=== PATIENT | female | born 1980 | race Asian ===

== ENCOUNTER 2017-09-15 17:23 | Emergency (ER) | payer BC ==
[~2017-09-15] VITALS: Ht 157.5 cm; Wt 55.8 kg
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
--- NOTE | 2017-09-15 17:54 | NUR ---
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
--- NOTE | 2017-09-15 18:05 | NUR ---
PT TO RADIOLOGY FOR HEAD CT SCAN VIA [facility].
[2017-09-15] MEDS ORDERED: ONDANSETRON 4 MG TAB.RAPDIS SL ONE (19:00)
[2017-09-15] MEDS ORDERED: IBUPROFEN 600 MG TABLET PO ONE ×2 (19:00→19:09)
[2017-09-15] MEDS ORDERED: HYDROCODONE/APAP 10/325MG 1 EA TABLET PO ONE (19:00)
[2017-09-15] MEDS ORDERED: ONDANSETRON 4 MG TAB.RAPDIS ONE (19:09)
[2017-09-15] MEDS ORDERED: HYDROCODONE/APAP 5/325MG 1 EACH TABLET ONE (19:09)
--- NOTE | 2017-09-15 20:03 | NUR ---
ASSUMED D/C CARE ONLY AT THIS TIME ON BEHALF OF PRIMARY NURSE LUISANA. Patient discharged to home in stable condition. Written and verbal after care instructions given. Patient verbalizes understanding of instruction. Ambulatory with a steady gait.
[2017-09-15] MEDS ORDERED: MORPHINE SULFATE INJ 2 MG/ML DISP.SYRIN IM ONE (20:30)
[2017-09-15] MEDS ORDERED: MORPHINE SULFATE INJ 4 MG/ML DISP.SYRIN ONE (20:44)
--- NOTE | 2017-09-15 21:19 | NUR ---
PT MEDICATED ORDERED AND FEELING MUCH BETTER. D/C HOME IN STABLE CONDITION. FAMILY WILL TAKE PT HOME.
[2017-09-15 21:21] VITALS: BP 125/77
== END 2017-09-15 20:06 | disposition home or self-care (01) ==
LOC: ER 17:25
DX: S06.0X9A Concussion with loss of consciousness of unspecified duration, initial encounter (principal); R07.89 Other chest pain; G93.0 Cerebral cysts; Y08.89XA Assault by other specified means, initial encounter; Y93.89 Activity, other specified; Y92.89 Other specified places as the place of occurrence of the external cause; Y99.8 Other external cause status
CPT/HCPCS: 70450; 71250; 96372; 99284; A4606; J2270; Q0162; Z7610